=== PATIENT | male | born 1935 | race Caucasian/White ===

== ENCOUNTER 2019-12-11 11:51 | Day surgery (SDC) | payer OTHER ==
[~2019-12-11] VITALS: Ht 182.9 cm; Wt 132.4 kg
[~2019-12-11 11:51] MED LIST: ASP81EC PO; ATOR40TA52 PO; CARV6.25 PO; FURO20TA3 PO; GABA-339 PO; GLIM2TAB33 PO; LEVO25TA6 PO; LOSA-69 PO; METF-370 PO; ROPI5TAB4 PO; SITA100T7 PO; SUVO1TAB2 PO; TAMS0.4C36 PO
[2019-12-11] MEDS ORDERED: LIDOCAINE 2%HCL (LOCAL ANESTH.) INJ 20ML MDV ONE (13:29)
[2019-12-11] MEDS ORDERED: GABAPENTIN 300 MG CAP PO ONE (13:30)
[2019-12-11] MEDS ORDERED: IOHEXOL 350 MG/ML 100ML IJ ONE (13:30)
[2019-12-11] MEDS ORDERED: fentaNYL CITRATE 100 MCG/2 ML VL ONE (13:34)
[2019-12-11] MEDS ORDERED: MIDAZOLAM HCL 1MG/1ML-2 ML VIAL ONE (13:34)
[2019-12-11] MEDS ORDERED: HYDROmorphone HCL 2 MG/ML VL IV ONE (14:45)
[2019-12-11] MEDS ORDERED: ACETAMINOPHEN 500 MG TAB PO PRN (15:30)
[2019-12-11] MEDS ORDERED: ONDANSETRON HCL 4 MG/2 ML VIAL IV PRN (15:30)
== END 2019-12-11 16:45 | disposition home or self-care (01) ==
LOC: CATH 11:51
PROVIDERS: ATTEND Specialist
DX: I25.10 Atherosclerotic heart disease of native coronary artery without angina pectoris (principal); E78.5 Hyperlipidemia, unspecified; E11.9 Type 2 diabetes mellitus without complications; E66.9 Obesity, unspecified; M19.90 Unspecified osteoarthritis, unspecified site; Z79.82 Long term (current) use of aspirin; Z79.84 Long term (current) use of oral hypoglycemic drugs; Z79.899 Other long term (current) drug therapy; Z68.39 Body mass index [BMI] 39.0-39.9, adult; Z87.891 Personal history of nicotine dependence
CPT/HCPCS: 93454; C1760; C1894; J1170; J1644; J2250; J3010; Q9967; 99152; 99153